=== PATIENT | female | born 1945 | race Caucasian/White ===

== ENCOUNTER → 2016-06-24 | Day surgery (SDC) | payer MEDICARE, BC ==
[~2016-06-24] MED LIST: Lactated Ringers 1,000 ML IV SCH; Propofol 200 MG/20 ML SDV IV ONE
[2016-06-24 08:07] VITALS: BP 120/64
--- NOTE | 2016-06-24 11:29 | OR ---
DATE OF OPERATION: 06/24/2016 PREOPERATIVE DIAGNOSIS: 1. DYSPHAGIA. 2. ALTERED BOWEL HABITS. POSTOPERATIVE DIAGNOSIS: 1. DYSPHAGIA. 2. ALTERED BOWEL HABITS. SURGEON: Rogers Jeffers MD PROCEDURE: 1. ESOPHAGOGASTRODUODENOSCOPY WITH BIOPSY X1, AKHIL. 2. FULL-LENGTH COLONOSCOPY. ANESTHESIA: [employer] due to chronic GERD and obesity. COMPLICATIONS: None. SPECIMEN: 1. Antral AKHIL. 2. EG junction biopsy x1. FINDINGS: 1. Full-length EGD. 2. Moderate-sized hiatal hernia with nonobstructing Schatzki's ring and minimal esophagitis. 3. Normal full length colonoscopy. RECOMMENDATIONS: The patient should be initiated on proton pump therapy and consideration for lap [place]. Routine followup colonoscopy on an as-needed basis at this point in her life. INDICATIONS: The patient presented for routine physical, admitted due to some occasional heartburn and dysphagia along with altered bowel habits. Dr. Roberts recommended upper and lower endoscopy. DESCRIPTION OF PROCEDURE: The patient was prepped and draped, placed in left lateral decubitus position. A lubricated Olympus gastroscope was inserted and easily intubated in the esophagus. Esophageal lining for the most part was benign in its entire course. The Z-line was crisp and sharp with a nonobstructing Schatzki's ring associated with mild to moderate sized hiatal hernia. There was minimal inflammation at the Z-line. No significant distal esophagitis. A biopsy was taken of that area. The scope was intubated into the stomach through the pylorus into the second and third portion of duodenum along with the duodenal bulb were unremarkable. The scope was brought back into the stomach and retroflexed. The upper fundus and cardia were unremarkable other than the hiatal hernia visualized from below. Straightening the scope allowed full visualization of the gastric lining. No polyps, mass, ulceration, bleeding sites were seen. No signs of any peptic ulcer disease. A CLOtest was obtained. Air was then suctioned. Scope removed without complication. A lubricated Olympus colonoscope was then inserted and easily advanced to the cecum. Direct visualization of the ileocecal valve and appendiceal orifice was accomplished. Bowel prep was adequate. Upon withdrawal of the scope throughout the entire length of the colon, I found no signs of any polyps, mass, ulceration, bleeding sites. There were no vascular abnormalities or signs of colitis. The patient had no diverticular disease. The rectal vault was unremarkable. Retroflexion scope in the rectum showed no anal lesions. Air was then suctioned, and scope removed without complication. YANICK/TATA /[id number]
== END ==
LOC: CC.SDS 06:25
PROVIDERS: ATTEND Family Medicine
DX: K21.0 Gastro-esophageal reflux disease with esophagitis (principal); K44.9 Diaphragmatic hernia without obstruction or gangrene; R13.10 Dysphagia, unspecified; R19.4 Change in bowel habit; M19.90 Unspecified osteoarthritis, unspecified site; E11.9 Type 2 diabetes mellitus without complications; E78.5 Hyperlipidemia, unspecified; E55.9 Vitamin D deficiency, unspecified; N85.2 Hypertrophy of uterus; R53.83 Other fatigue; R35.1 Nocturia; R20.9 Unspecified disturbances of skin sensation; E04.1 Nontoxic single thyroid nodule; M81.8 Other osteoporosis without current pathological fracture; F17.200 Nicotine dependence, unspecified, uncomplicated; Z79.82 Long term (current) use of aspirin; Z79.899 Other long term (current) drug therapy; Z88.0 Allergy status to penicillin; Z88.8 Allergy status to other drugs, medicaments and biological substances; Z98.49 Cataract extraction status, unspecified eye; Z98.890 Other specified postprocedural states; Z83.3 Family history of diabetes mellitus; Z12.31 Encounter for screening mammogram for malignant neoplasm of breast
CPT/HCPCS: 00810; 43239; 45378; 82962; 87081; 88305; J2704; J7120